=== PATIENT | female | born 1955 | race African-American/Black ===

== ENCOUNTER 2019-04-07 09:24 | Emergency (ER) | payer MEDICAID ==
[~2019-04-07] VITALS: Ht 154.9 cm; Wt 54.4 kg
[2019-04-07 09:30] VITALS: BP 126/78
--- NOTE | 2019-04-07 09:30 | NUR ---
ED Nurse Note: Patient walked in to ER from home due to generalized bodyache and swelling on bilateral legs x 6 months. Alert and oriented x4, verbally responsive. Breathing even and unlabored. VS are stable.
[2019-04-07] MEDS ORDERED: AMLODIPINE BESYL5 MG ORAL (09:33)
[2019-04-07] MEDS ORDERED: ZOCOR10 MG ORAL (09:33)
[2019-04-07] MEDS ORDERED: Ketorolac 30mg Inj IV ONE (10:00)
[2019-04-07 10:29] LABS: ANION GAP 8 mmol/L (5-15); BASOPHILS % (AUTO) 1.7 % (0.0-2.0); BLOOD UREA NITROGEN 14 mg/dL (7-18); CALCIUM 8.7 MG/DL (8.5-10.1); CARBON DIOXIDE 27 MMOL/L (21-32); CHLORIDE 105 MMOL/L (98-107); CREATININE 0.8 MG/DL (0.55-1.30); EOSINOPHILS % (AUTO) 2.6 % (0.0-3.0); HEMATOCRIT 35.7 % (37.0-47.0); HEMOGLOBIN 11.7 G/DL (12.0-16.0); LYMPHOCYTES % (AUTO) 38.8 % (20.0-45.0); MEAN CORPUSCULAR VOLUME 101 FL (80-99); MONOCYTES % (AUTO) 9.6 % (1.0-10.0); NEUTROPHILS % (AUTO) 47.2 % (45.0-75.0); PLATELET COUNT 298 K/UL (150-450); POTASSIUM 3.9 MMOL/L (3.5-5.1); RED BLOOD COUNT 3.52 M/UL (4.20-5.40); RED CELL DISTRIBUTION WIDTH 11.9 % (11.6-14.8); SODIUM 140 MMOL/L (136-145); WHITE BLOOD COUNT 6.5 K/UL (4.8-10.8)
[2019-04-07 10:33] LABS: ALANINE AMINOTRANSFERASE 17 U/L (12-78); ALBUMIN 3.9 G/DL (3.4-5.0); ALBUMIN/GLOBULIN RATIO 1.1 (1.0-2.7); ALKALINE PHOSPHATASE 80 U/L (46-116); ASPARTATE AMINO TRANSFERASE 17 U/L (15-37); BILIRUBIN,TOTAL 0.7 MG/DL (0.2-1.0)
--- NOTE | 2019-04-07 10:45 | Emergency Room Report ---
History of Present Illness General Chief Complaint: Pain Source: Patient Present Illness HPI 63-year-old female presents ED for evaluation. States she is having generalized body pain for the last 6 months. Worse at night. States that she feels like her body is "cramping up". At its worst it is a 7 out of 10, nonradiating. Currently has minimal pain. Wants to know why she is having the symptoms. Denies any abdominal pain nausea or vomiting. Denies chest pain or shortness of breath. Denies fevers or chills. No other aggravating relieving factors. Denies any other associated symptoms Allergies: Coded Allergies: No Known Allergies (Unverified , 04/07/19) Patient History Past Medical History: HTN, COPD Past Surgical History: none Pertinent Family History: none Social History: Denies: smoking, alcohol use, drug use Now: No Immunizations: UTD Reviewed Nursing Documentation: PMH: Agreed; PSxH: Agreed Nursing Documentation-PMH Past Medical History: No History, Except For Hx Hypertension: Yes Hx COPD: Yes Review of Systems All Other Systems: negative except mentioned in HPI Physical Exam Vital Signs Date Time Temp Pulse Resp B/P (MAP) Pulse Ox O2 Delivery O2 Flow Rate FiO2 04/07/19 09:28 98.6 71 16 146/82 (103) 92 Sp02 EP Interpretation: reviewed, normal General Appearance: no apparent distress, alert, GCS 15, non-toxic Head: normocephalic, atraumatic Eyes: bilateral eye normal inspection, bilateral eye PERRL ENT: hearing grossly normal, normal pharynx, no angioedema, normal voice Neck: full range of motion, supple/symm/no masses Respiratory: chest non-tender, lungs clear, normal breath sounds, speaking full sentences Cardiovascular #1: regular rate, rhythm, no edema Cardiovascular #2: 2+ carotid (R), 2+ carotid (L), 2+ radial (R), 2+ radial (L) , 2+ dorsalis pedis (R), 2+ dorsalis pedis (L) Gastrointestinal: normal bowel sounds, non tender, soft, non-distended, no guarding, no rebound Rectal: deferred Genitourinary: normal inspection, no CVA tenderness Musculoskeletal: back normal, gait/station normal, normal range of motion, non- tender, no calf tenderness, swelling - bilateral feet Neurologic: alert, oriented x3, responsive, motor strength/tone normal, sensory intact, speech normal Psychiatric: judgement/insight normal, memory normal, mood/affect normal, no suicidal/homicidal ideation Reflexes: 3+ bicep (R), 3+ bicep (L), 3+ tricep (R), 3+ tricep (L), 3+ knee (R) , 3+ knee (L) Lymphatic: no adenopathy Medical Decision Making Diagnostic Impression: Primary Impression: Generalized pain ER Course Hospital Course 63-year-old female presents ED complaining of generalized body pain, swelling to feet differential diagnosis: muscle cramps, dehydration, hypokalemia Clinical course Patient placed on stretcher. On hall monitor. After initial history and physical I ordered labs, IV fluids, toradol Labs - no leukocytosis, electrolytes ok , LFTs normal Discussed findings with patient. Vitals stable. Physical exam unremarkable. Pain is chronic. Will discharge home with muscle relaxer. Also with compression stockings for the swelling in her feet. States she needs to follow- up with her PMD regarding outpatient evaluation. I feel this is a highly complex case requiring extensive working including EKG/ Rhythm strip, Xray/CT/US, Blood/urine lab work, repeat exams while in ED, and administration of strong opiates/narcotics for pain control, admission to hospital or close patient follow up. Diagnosis - genearlized pain Stable and discharged to home with prescriptions for tylenol, robaxin, compression stockings. Followup with PMD. Return to ED if symptoms recur or worsen Labs Test 04/07/19 10:06 White Blood Count 6.5 K/UL (4.8-10.8) Red Blood Count 3.52 M/UL (4.20-5.40) Hemoglobin 11.7 G/DL (12.0-16.0) Hematocrit 35.7 % (37.0-47.0) Mean Corpuscular Volume 101 FL (80-99) Mean Corpuscular Hemoglobin 33.1 PG (27.0-31.0) Mean Corpuscular Hemoglobin Concent 32.6 G/DL (32.0-36.0) Red Cell Distribution Width 11.9 % (11.6-14.8) Platelet Count 298 K/UL (150-450) Mean Platelet Volume 6.2 FL (6.5-10.1) Neutrophils (%) (Auto) 47.2 % (45.0-75.0) Lymphocytes (%) (Auto) 38.8 % (20.0-45.0) Monocytes (%) (Auto) 9.6 % (1.0-10.0) Eosinophils (%) (Auto) 2.6 % (0.0-3.0) Basophils (%) (Auto) 1.7 % (0.0-2.0) Sodium Level 140 MMOL/L (136-145) Potassium Level 3.9 MMOL/L (3.5-5.1) Chloride Level 105 MMOL/L (98-107) Carbon Dioxide Level 27 MMOL/L (21-32) Anion Gap 8 mmol/L (5-15) Blood Urea Nitrogen 14 mg/dL (7-18) Creatinine 0.8 MG/DL (0.55-1.30) Estimat Glomerular Filtration Rate > 60 mL/min (>60) Glucose Level 91 MG/DL (74-106) Calcium Level 8.7 MG/DL (8.5-10.1) Total Bilirubin 0.7 MG/DL (0.2-1.0) Aspartate Amino Transf (AST/SGOT) 17 U/L (15-37) Alanine Aminotransferase (ALT/SGPT) 17 U/L (12-78) Alkaline Phosphatase 80 U/L (46-116) Total Protein 7.5 G/DL (6.4-8.2) Albumin 3.9 G/DL (3.4-5.0) Globulin 3.6 g/dL Albumin/Globulin Ratio 1.1 (1.0-2.7) Last Vital Signs Date Time Temp Pulse Resp B/P (MAP) Pulse Ox O2 Delivery O2 Flow Rate FiO2 04/07/19 09:30 98.6 66 19 126/78 97 Status: improved Disposition: HOME, SELF-CARE Condition: Stable Scripts Comp.stocking,Knee,Regular,Lrg (TRUFORM COMPRESSION STOCKING) 1 Each Each EACH , #2 Prov: Jaswinder Wilkinson MD 04/07/19 Acetaminophen* (TYLENOL EXTRA STRENGTH*) 500 Mg Tablet 500 MG ORAL Q8H PRN for Prn Headache/Temp > 101, #30 TAB 0 Refills Prov: Jaswinder Wilkinson MD 04/07/19 Methocarbamol* (ROBAXIN-750*) 750 Mg Tablet 750 MG PO TID, #21 TAB 0 Refills Prov: Jaswinder Wilkinson MD 04/07/19 Jaswinder Wilkinson MD Apr 07, 2019 10:45
[2019-04-07] MEDS ORDERED: ROBAXIN-750750 MG PO (10:53)
[2019-04-07] MEDS ORDERED: TRUFORM COMPRE1 EACH MC (10:53)
[2019-04-07] MEDS ORDERED: TYLENOL EXTRA500 MG ORAL (10:53)
[2019-04-07 11:03] VITALS: BP 118/75
--- NOTE | 2019-04-07 11:03 | NUR ---
ED Nurse Note: Pt cleared by ERMD for discharge. DC instructions/prescription was given and explained to pt and verbalized understanding of teachings. All medical deviecs such as ID band and IV line removed. Pt is AAO x4, ambulatory and left with all personal belongings.
== END 2019-04-07 11:03 | disposition home or self-care (01) ==
LOC: EMR 10:52
DX: R52 Pain, unspecified (principal); I10 Essential (primary) hypertension; J44.9 Chronic obstructive pulmonary disease, unspecified
CPT/HCPCS: 36415; 80053; 85025; 96374; 99284; J1885; J7040